=== PATIENT | male | born 1950 | race Two or more races ===

== ENCOUNTER 2017-09-04 13:39 | Day surgery (SDC) | payer MEDICARE, OTHER ==
[2017-09-04] MEDS ORDERED: PROPOFOL 60 ML (15:34)
[2017-09-04] MEDS ORDERED: LIDOCAINE 2% (SDV) 5 ML INJ (15:34)
== END 2017-09-04 16:56 | disposition home or self-care (01) ==
LOC: GIL 13:39
DX: Z12.11 Encounter for screening for malignant neoplasm of colon (principal); D12.5 Benign neoplasm of sigmoid colon; K64.8 Other hemorrhoids; E78.5 Hyperlipidemia, unspecified; E11.9 Type 2 diabetes mellitus without complications
CPT/HCPCS: 45385; 82962; 88305